=== PATIENT | male | born 1990 | race African-American/Black ===

== ENCOUNTER 2021-11-06 20:28 | Emergency (ER) | payer OTHER ==
[2021-11-06] MEDS ORDERED: Azithromycin 250 MG Tab PO STA (21:30)
[2021-11-06] MEDS ORDERED: cefTRIAXone 500 MG in Lidocaine 1% 1 ML IM ONE (21:30)
[2021-11-06 23:10] LABS: C. TRACHOMATIS BY PCR NOT DETECTED; N. GONORRHOEAE BY PCR NOT DETECTED
== END 2021-11-06 23:10 | disposition home or self-care (01) ==
LOC: EDBD → MW.ED 20:28
DX: R30.0 Dysuria (principal)
CPT/HCPCS: 81003; 87491; 87591; 96372; 99283; A9270; J0696

== ENCOUNTER 2021-11-10 20:09 | Emergency (ER) | payer OTHER ==
[2021-11-10] MEDS ORDERED: Sodium Chloride 0.9% 10 ML Syringe FLUSH PRN (20:57)
[2021-11-10] MEDS ORDERED: Sodium Chloride 0.9% 2.5 ML Syringe FLUSH PRN (20:57)
[2021-11-10 21:41] LABS: BLOOD UREA NITROGEN,BUN 12 mg/dL (7.0-18.0); CARBON DIOXIDE,CO2 25.9 mmol/L (21.0-32.0); CHLORIDE,CL 104 mmol/L (98-107); GLUCOSE RANDOM 86 mg/dL (74-106); LIPASE 133 U/L (73-393); POTASSIUM,K 3.9 mmol/L (3.5-5.1); SODIUM,NA 139 mmol/L (136-148)
[2021-11-10] MEDS ORDERED: Iopamidol 755 MG/ML 500 ML Multipack Bottle IVPUSH STA (22:25)
== END 2021-11-10 23:37 | disposition home or self-care (01) ==
LOC: MW.ED 20:09 → EDBD 20:09 → MW.ED 23:37
DX: N28.1 Cyst of kidney, acquired (principal); M89.8X5 Other specified disorders of bone, thigh
CPT/HCPCS: 36415; 74177; 80053; 81003; 83690; 85025; 99284; Q9967; 99283